=== PATIENT | female | born 1930 | race Caucasian/White ===

== ENCOUNTER 2019-05-31 10:19 | Emergency (ER) | payer MEDICARE ==
[2019-05-31 10:56] LABS: BASOPHIL % 0.6 % (0.0-0.4); Basophil (Absolute #) 0.03 (0-0.4); Eosinophil % 5.4 % (0.00-5.0); Eosinophil (Absolute #) 0.26 (0-0.5); Granulocyte Absolute (ANC) 3.02 (1.4-6.9); Granulocytes % 62.4 % (36.0-66.0); Hematocrit 35.7 % (35-47); Hemoglobin 11.4 gm/dl (12.0-16.0); Lymphocyte (Absolute #) 0.97 (1.0-4.6); Mean Cell Volume 97.3 fl (78-100); Mean Corpuscular Hgb Concent. 31.9 g/dl (32-36); Mean Platelet Volume 10.8 fl (6-9.5); Monocyte (Absolute #) 0.56 (0.0-1.3); Monocytes % 11.6 % (0.0-12.0); Platelet Count 166 K/mm3 (150-450); Red Blood Count 3.67 M/mm3 (4.1-5.4); White Blood Count 4.8 K/mm3 (4.0-10.5)
[2019-05-31 12:30] LABS: ALBUMIN 3.8 g/dL (3.5-5.0); ALKALINE PHOSPHATASE 56 U/L (38-126); NT PRO BNP 379 pg/mL (0-1800); SGOT/AST 39 U/L (14-36); SGPT/ALT 20 U/L (0-35); Total Protein 6.7 g/dL (6.3-8.2)
[2019-05-31 13:09] VITALS: O2SAT 98
[2019-05-31 13:11] LABS: Amphetamine,Urine NEGATIVE (NEGATIVE); Barbiturate,Urine NEGATIVE (NEGATIVE); Benzodiazepine,Urine NEGATIVE (NEGATIVE); Cocaine,Urine NEGATIVE (NEGATIVE); Methadone,Urine NEGATIVE (NEGATIVE); Opiate,Urine NEGATIVE (NEGATIVE); PCP,Urine NEGATIVE (NEGATIVE); THC,Urine NEGATIVE (NEGATIVE)
--- NOTE | 2019-05-31 15:18 | ERPHSYRPT ---
- History of Present Illness Historian: patient Exam Limitations: no limitations Patient Subjective Stated Complaint: STATES WAS PULLING WEEDS OUTSIDE AND STARTED HAVING CHEST PAIN. STATES PAIN LASTED 15 MIN AND AFTER RESTING, PAIN WENT AWAY. Triage Nursing Assessment: AMBULATED TO ROOM PER SELF. SKIN W/D, COLOR NORMAL. RESP NONLABORED. STATES PAIN IS GONE NOW. Physician History: Pt is an 88 y/o female that was weeding in her garden and developed chest pain. Pt does not have any h/o of cardiac stents or CAD. She does take some BP meds. Pt states, the pain is sub sternal. No N/V/D or abdominal pain. No SOB or cough. No dysuria, frequency and urgency. Pt took some Nitro SL that she had at home, and called 911. Pt states, she took two baby ASA as well. Timing/Duration: today Activities at Onset: activity Quality: aching, sharpness Location: substernal Chest Pain Radiation: no radiation Severity of Pain-Max: mild Severity of Pain-Current: mild Modifying Factors: Improves With: nitroglycerin, aspirin Associated Symptoms: denies symptoms Prior Chest Pain/Cardiac Workup: no prior cardiac workup Nitro Today/Relief: 0.4 mg x 2 Aspirin Treatment Today: 81 mg x 2 Allergies/Adverse Reactions: amitriptyline HCl [From Elavil] Allergy (Verified 05/31/19 10:37) amoxicillin [Amoxicillin] Allergy (Verified 05/31/19 10:37) azithromycin [From Zithromax] Allergy (Verified 05/31/19 10:37) ceftriaxone sodium [From Rocephin] Allergy (Verified 05/31/19 10:37) clindamycin Allergy (Verified 05/31/19 10:37) codeine phosphate [From Tylenol-Codeine #3] Allergy (Verified 05/31/19 10:37) made her "deathly sick" erythromycin base Allergy (Verified 05/31/19 10:37) levofloxacin [From Levaquin] Allergy (Verified 05/31/19 10:37) Sulfa (Sulfonamide Antibiotics) [Sulfa(Sulfonamide Antibiotics)] Allergy ( Verified 05/31/19 10:37) doxycycl-omeprazole Allergy (Uncoded 06/20/15 09:53) tussi Allergy (Uncoded 06/20/15 09:53) Home Medications: Pindolol 5 mg PO DAILY 11/12/12 [History] Etodolac [Lodine] 500 mg PO UD PRN 01/26/16 [History] Fluticasone/Vilanterol [Breo Ellipta 100-25 Mcg INH] 1 each IH DAILY 05/31/19 [ History] Hx Tetanus, Diphtheria Vaccination/Date Given: No (2012) Hx Influenza Vaccination/Date Given: Yes Hx Pneumococcal Vaccination/Date Given: Yes - Review of Systems Constitutional: No Fever, No Chills Eyes: No Symptoms Ears, Nose, & Throat: No Symptoms Respiratory: No Cough, No Dyspnea Cardiac: Chest Pain Abdominal/Gastrointestinal: No Abdominal Pain, No Nausea, No Vomiting, No Diarrhea Genitourinary Symptoms: No Dysuria Musculoskeletal: No Back Pain, No Neck Pain Neurological: No Dizziness, No Focal Weakness, No Sensory Changes - Past Medical History Pertinent Past Medical History: Yes Neurological History: No Pertinent History ENT History: No Pertinent History Cardiac History: No Pertinent History, Hypertension Respiratory History: Asthma, Bronchitis, COPD, Pneumonia Endocrine Medical History: No Pertinent History Musculoskeletal History: Osteoarthritis, Osteoporosis GI Medical History: No Pertinent History History: Other Psycho-Social History: No Pertinent History Female Reproductive Disorders: No Pertinent History Other Medical History: tinnitis L ear - Past Surgical History Past Surgical History: Yes Neuro Surgical History: No Pertinent History Cardiac: No Pertinent History Respiratory: No Pertinent History Gastrointestinal: Appendectomy, Colon Resection Genitourinary: Other Musculoskeletal: Other Female Surgical History: Hysterectomy Other Surgical History: had bladder "tied up" in 2004, lithotripsy, bilat foot, colonoscopy - Social History Smoking Status: Never smoker Exposure to second hand smoke: Yes Drug Use: none Patient Lives Alone: Yes - Female History Hx Now: No - Nursing Vital Signs Nursing Vital Signs: Initial Vital Signs Temperature 97.4 F 05/31/19 10:23 Pulse Rate 50 L 05/31/19 10:23 Respiratory Rate 16 05/31/19 10:23 Blood Pressure 130/92 05/31/19 10:23 O2 Sat by Pulse Oximetry 96 05/31/19 10:23 Pain Scale Pain Intensity 0 - Physical Exam General Appearance: no apparent distress, alert Eye Exam: PERRL/EOMI, eyes nml inspection Ears, Nose, Throat Exam: normal ENT inspection, moist mucous membranes Neck Exam: normal inspection, non-tender, supple, full range of motion Respiratory Exam: normal breath sounds, lungs clear, No respiratory distress Cardiovascular Exam: regular rate/rhythm, normal heart sounds Gastrointestinal/Abdomen Exam: soft, No tenderness, No mass Back Exam: normal inspection, No CVA tenderness, No vertebral tenderness Neurologic Exam: alert, oriented x 3, cooperative, normal mood/affect, sensation nml, No motor deficits SpO2: 98 - Course Nursing assessment & vital signs reviewed: Yes EKG Interpreted by Me: RATE (54bpm), Sinus [place], NORMAL QRS Ordered Tests: Active Orders 24 hr Category Date Time Status CBC W DIFF Stat Lab 05/31/19 10:50 Completed CMP Stat Lab 05/31/19 Completed D-DIMER QUANTITATION Stat Lab 05/31/19 10:50 Completed NT PRO BNP Stat Lab 05/31/19 Completed TROPONIN Q3H Lab 05/31/19 13:43 Completed TROPONIN Q3H Lab 05/31/19 16:45 Ordered TROPONIN Q3H Lab 05/31/19 19:45 Ordered TROPONIN Q3H Lab 05/31/19 22:45 Ordered Urinalysis with Microscopy Stat Lab 05/31/19 13:52 Ordered Urine Triage Profile Stat Lab 05/31/19 Completed Lab/Rad Data: Laboratory Result Diagrams 05/31/19 10:50 05/31/19 10:45 Laboratory Results 05/31/19 05/31/19 05/31/19 Range/Units Unknown Unknown 13:43 WBC (4.0-10.5) K/mm3 RBC (4.1-5.4) M/mm3 Hgb (12.0-16.0) gm/dl Hct (35-47) % MCV (78-100) fl MCH (26-32) pg MCHC (32-36) g/dl RDW (11.5-14.0) % Plt Count (150-450) K/mm3 MPV (6-9.5) fl Gran % (36.0-66.0) % Eos # (Auto) (0-0.5) Absolute Lymphs (auto) (1.0-4.6) Absolute Monos (auto) (0.0-1.3) Lymphocytes % (24.0-44.0) % Monocytes % (0.0-12.0) % Eosinophils % (0.00-5.0) % Basophils % (0.0-0.4) % Absolute Granulocytes (1.4-6.9) Basophils # (0-0.4) D-Dimer (215-500) ng/mL Sodium Direct (138-146) mmol/L Potassium (3.5-4.9) mmol/L Chloride (98-109) mmol/L Carbon Dioxide (24-29) mmol/L Venous BUN (8-26) mg/dL Creatinine (0.6-1.3) mg/dL Estimated GFR > 60.0 ML/MIN Glucose (70-105) mg/dL Ionized Calcium (1.12-1.32) mmol/L Total Bilirubin 0.60 (0.2-1.3) mg/dL AST 39 H (14-36) U/L ALT 20 (0-35) U/L Alkaline Phosphatase 56 (38-126) U/L Troponin (0.00-0.03) ng/mL Troponin I < 0.012 (0.000-0.034) ng/mL NT-Pro-B Natriuret Pep 379 (0-1800) pg/mL Serum Total Protein 6.7 (6.3-8.2) g/dL Albumin 3.8 (3.5-5.0) g/dL Urine Opiates Level NEGATIVE (NEGATIVE) Ur Methadone NEGATIVE (NEGATIVE) Urine Barbiturates NEGATIVE (NEGATIVE) Ur Phencyclidine (PCP) NEGATIVE (NEGATIVE) Urine Amphetamine NEGATIVE (NEGATIVE) U Benzodiazepine Level NEGATIVE (NEGATIVE) Urine Cocaine NEGATIVE (NEGATIVE) Urine Marijuana (THC) NEGATIVE (NEGATIVE) 05/31/19 05/31/19 05/31/19 Range/Units 10:50 10:50 10:45 WBC 4.8 (4.0-10.5) K/mm3 RBC 3.67 L (4.1-5.4) M/mm3 Hgb 11.4 L (12.0-16.0) gm/dl Hct 35.7 (35-47) % MCV 97.3 (78-100) fl MCH 31.0 (26-32) pg MCHC 31.9 L (32-36) g/dl RDW 14.0 (11.5-14.0) % Plt Count 166 (150-450) K/mm3 MPV 10.8 H (6-9.5) fl Gran % 62.4 (36.0-66.0) % Eos # (Auto) 0.26 (0-0.5) Absolute Lymphs (auto) 0.97 L (1.0-4.6) Absolute Monos (auto) 0.56 (0.0-1.3) Lymphocytes % 20.0 L (24.0-44.0) % Monocytes % 11.6 (0.0-12.0) % Eosinophils % 5.4 H (0.00-5.0) % Basophils % 0.6 (0.0-0.4) % Absolute Granulocytes 3.02 (1.4-6.9) Basophils # 0.03 (0-0.4) D-Dimer 437 (215-500) ng/mL Sodium Direct 142 (138-146) mmol/L Potassium 4.0 (3.5-4.9) mmol/L Chloride 105 (98-109) mmol/L Carbon Dioxide 29 (24-29) mmol/L Venous BUN 25 (8-26) mg/dL Creatinine 1.0 (0.6-1.3) mg/dL Estimated GFR ML/MIN Glucose 107 H (70-105) mg/dL Ionized Calcium 1.24 (1.12-1.32) mmol/L Total Bilirubin (0.2-1.3) mg/dL AST (14-36) U/L ALT (0-35) U/L Alkaline Phosphatase (38-126) U/L Troponin 0.01 (0.00-0.03) ng/mL Troponin I (0.000-0.034) ng/mL NT-Pro-B Natriuret Pep (0-1800) pg/mL Serum Total Protein (6.3-8.2) g/dL Albumin (3.5-5.0) g/dL Urine Opiates Level (NEGATIVE) Ur Methadone (NEGATIVE) Urine Barbiturates (NEGATIVE) Ur Phencyclidine (PCP) (NEGATIVE) Urine Amphetamine (NEGATIVE) U Benzodiazepine Level (NEGATIVE) Urine Cocaine (NEGATIVE) Urine Marijuana (THC) (NEGATIVE) - Progress Progress: improved Air Movement: good Progress Note: 05/31/19 15:19 Pt was seen and examined. Her EKG was normal. troponinx2 were negative. lab work otherwise was normal and normal UA. Pt is cleared for d/c. She should f/ u with PCP and consider stress test as out pt. Will see patient in: office Counseled pt/family regarding: need for follow-up - Departure Departure Disposition: Home Clinical Impression: Chest pain, Chest pain Condition: Stable Critical Care Time: No Referrals: NENA NAVARRO NP [Primary Care Provider] - Additional Instructions: F/U with PCP and consider stress test as out pt.
[2019-05-31 15:38] VITALS: BP 138/63; PULSE 88
[2019-05-31 16:29] LABS: Appearance CLEAR (CLEAR); Bilirubin NEGATIVE (NEGATIVE); Blood NEGATIVE Ery/ul (0-5); Glucose NEGATIVE (NEGATIVE); Ketones NEGATIVE (NEGATIVE); Leukocyte Esterase NEGATIVE (NEGATIVE); Mucus SLIGHT /HPF (NEGATIVE); Nitrite NEGATIVE (NEGATIVE); Protein,Urine Dip NEGATIVE (Negative); Specific Gravity 1.014 (1.005-1.025); Urobilinogen NEGATIVE mg/dL (0-1); WBC 0-2 /HPF (0-5)
== END 2019-05-31 15:40 | disposition home or self-care (01) ==
LOC: ED 10:19
DX: R07.9 Chest pain, unspecified (principal); I10 Essential (primary) hypertension; J44.9 Chronic obstructive pulmonary disease, unspecified; J45.909 Unspecified asthma, uncomplicated; M81.0 Age-related osteoporosis without current pathological fracture; Z90.49 Acquired absence of other specified parts of digestive tract; Z79.899 Other long term (current) drug therapy
CPT/HCPCS: 36000; 36415; 80047; 80053; 80307; 81001; 83880; 84484; 85025; 85379; 99284